=== PATIENT | female | born 1945 | race Two or more races ===

== ENCOUNTER 2017-05-22 23:05 | Inpatient (IN) | payer OTHER ==
[~2017-05-22] VITALS: Ht 154.9 cm; Wt 57.2 kg
[2017-05-22] MEDS ORDERED: LORA0.5T PO (23:24)
[2017-05-22] MEDS ORDERED: VALS40TA4 GT (23:24)
[2017-05-22] MEDS ORDERED: LEVO50TA8 PO (23:24)
[2017-05-22] MEDS ORDERED: OMEP20CA10 PO (23:24)
[2017-05-22] MEDS ORDERED: POTA10CA43 PO (23:24)
[2017-05-23 00:57] VITALS: BP 148/85
[2017-05-23 01:07] LABS: *BILIRUBIN,URIN NEGATIVE (NEGATIVE); *BLOOD, URINE NEGATIVE (NEGATIVE); *CLARITY,URINE CLEAR (CLEAR); *COLOR,URINE YELLOW (YELLOW); *KETONES,URINE NEGATIVE (NEGATIVE); *PROTEIN,URINE NEGATIVE (NEGATIVE); LEUKOCYTE ESTERASE ,URINE NEGATIVE (NEGATIVE); NITRITE, URINE NEGATIVE (NEGATIVE); UGLUCOSE NEGATIVE (NEGATIVE)
[2017-05-23 01:15] LABS: BACTERIA,URINE NONE SEEN /HPF (NONE SEEN); RBC,URINE 0-3 /HPF (0-3); SQUAMOUS EPITHELIAL CELL,UR FEW /HPF (NONE SEEN); WBC,URINE 0-3 /HPF (0-3)
[2017-05-23 07:30] VITALS: BP 116/75
[2017-05-23 15:00] VITALS: BP 127/83
[2017-05-23 20:21] VITALS: BP 124/81
[2017-05-24 07:30] VITALS: BP 130/87
[2017-05-24 15:00] VITALS: BP 136/84
[2017-05-24 20:00] VITALS: BP 114/78
[2017-05-25 07:30] VITALS: BP 118/69
[2017-05-25 15:09] VITALS: BP 120/70
[2017-05-25 20:29] VITALS: BP 124/76
[2017-05-26 07:53] VITALS: BP 127/79
[2017-05-26 17:13] VITALS: BP 141/84
[2017-05-26 20:13] VITALS: BP 128/76
[2017-05-27 07:30] VITALS: BP 132/84
[2017-05-27 17:08] VITALS: BP 135/72
[2017-05-27 20:00] VITALS: BP 127/77
[2017-05-28 07:30] VITALS: BP 126/79
[2017-05-28 08:19] LABS: BASOPHILS # (AUTO) 0.1 K/uL (0.0-8.0); EOSINOPHILS # (AUTO) 0.4 K/uL (0.0-0.7); EOSINOPHILS % (AUTO) 6.2 % (0.0-7.0); HEMATOCRIT 41.3 % (37-47); HEMOGLOBIN 13.8 G/DL (12.0-16.0); LYMPHOCYTES # (AUTO) 1.2 K/UL (0.8-4.8); LYMPHOCYTES % (AUTO) 19.6 % (20.5-51.5); MEAN CORPUSCULAR HEMOGLOBIN 31.3 UUG (27.0-31.0); MEAN CORPUSCULAR HGB CONC 33 g/dL (32.0-37.0); MEAN CORPUSCULAR VOLUME 93.8 FL (81.0-99.0); MONOCYTES # (AUTO) 0.4 K/UL (0.1-1.30); NEUTROPHILS # (AUTO) 3.8 K/UL (1.8-8.9); NEUTROPHILS % (AUTO) 66.2 % (38.5-71.5); PLATELET COUNT (AUTO) 192 K/UL (150-450); RED BLOOD CELL COUNT(AUTO) 4.41 MIL/UL (4.2-5.4); WHITE BLOOD COUNT (AUTO) 5.9 K/UL (4.0-11.2)
[2017-05-28 08:32] LABS: THYROID STIMULATING HORMONE 1.438 mIU/mL (0.358-3.740)
[2017-05-28 08:53] LABS: ALANINE AMINOTRANSFERASE 32 U/L (14-59); ALKALINE PHOSPHATASE 97 U/L (50-136); ASPARTATE AMINOTRANSFERASE 26 U/L (15-37); BILIRUBIN,TOTAL 0.6 mg/dL (0.2-1.0); CARBON DIOXIDE 31 mmol/L (21-32); CHLORIDE 106 mmol/L (98-107); CREATININE 0.7 mg/dL (0.6-1.3); GLUCOSE 93 mg/dL (74-106); MAGNESIUM 2.1 mg/dL (1.8-2.4); PHOSPHOROUS 3.8 mg/dL (2.5-4.9); TOTAL PROTEIN, SERUM 7.7 g/dL (6.4-8.2); UREA NITROGEN, BLOOD 15 mg/dL (7-18)
[2017-05-28 16:00] VITALS: BP 124/78
== END 2017-05-28 18:45 | disposition home or self-care (01) | DRG 885 ==
LOC: ER 23:05 → GPS 05-23 00:02
PROVIDERS: ADMIT Psychiatry & Neurology Psychiatry; ATTEND Nurse Practitioner Acute Care
DX: F33.2 Major depressive disorder, recurrent severe without psychotic features (principal); I10 Essential (primary) hypertension; E03.9 Hypothyroidism, unspecified; Z91.5 Personal history of self-harm; K21.9 Gastro-esophageal reflux disease without esophagitis; Z87.11 Personal history of peptic ulcer disease; F43.21 Adjustment disorder with depressed mood; Z79.899 Other long term (current) drug therapy
CPT/HCPCS: 36415; 83735; 84100; 84443; 85025; 87086; 93005; A4663